=== PATIENT | female | born 1990 | race Caucasian/White ===

== ENCOUNTER 2017-04-27 10:22 | Emergency (ER) | payer OTHER ==
[~2017-04-27] VITALS: Ht 170.2 cm; Wt 83.9 kg
[2017-04-27 10:35] VITALS: BP_SYST 128
[2017-04-27] MEDS ORDERED: IBUPROFEN 800 MG TABLET PO ONE ×2 (11:00→12:00)
[2017-04-27 12:43] VITALS: BP_SYST 121
== END 2017-04-27 12:43 | disposition home or self-care (01) ==
LOC: SED 10:22
DX: S16.1XXA Strain of muscle, fascia and tendon at neck level, initial encounter (principal); S29.012A Strain of muscle and tendon of back wall of thorax, initial encounter; R03.0 Elevated blood-pressure reading, without diagnosis of hypertension; V89.2XXA Person injured in unspecified motor-vehicle accident, traffic, initial encounter; Y93.89 Activity, other specified; Y92.488 Other paved roadways as the place of occurrence of the external cause; Y99.8 Other external cause status
CPT/HCPCS: 72040-TC; 72072-TC; 81025; 99284